=== PATIENT | male | born 1940 | race Caucasian/White ===

== ENCOUNTER 2024-04-17 16:30 | Inpatient (IN) ==
--- NOTE | 2024-04-17 16:37 | EKG ---
Test Reason : high heart rate Blood Pressure : */* mmHG Vent. Rate : 140 BPM Atrial Rate : * BPM P-R Int : * ms QRS Dur : 102 ms QT Int : 242 ms P-R-T Axes : * -5 86 degrees QTc Int : 369 ms Atrial fibrillation with rapid ventricular response Incomplete right bundle branch block ST depression, consider subendocardial injury Abnormal ECG When compared with ECG of 04-NOV-2023 10:22, Atrial fibrillation has replaced Sinus rhythm Vent. rate has increased BY [address] now depressed in Anterior leads Confirmed by Nitin Eisenberg MD ([id number]) on 04/18/2024 7:40:05 AM Referred By: Confirmed By: Nitin Eisenberg MD
[2024-04-17 16:45] LABS: ABG BASE EXCESS 1.8 mmol/L (-2.0-2.0); ABG HCO3 25.7 mmol/L (22-26)
[2024-04-17 16:46] LABS: ABG ALLEN TEST POS
[2024-04-17 16:56] VITALS: BMI 24.7
[2024-04-17] MEDS: NS 1,000 ML IV 1,000 ML IV SCH (17:01)
[2024-04-17] MEDS: CARDIZEM INJ 50 MG VIAL IVP ONE (17:01)
[2024-04-17] MEDS: CARDIZEM INJ 125 MG VIAL 125 MG in NS 100 ML IV 100 ML IV PRN (17:30)
--- NOTE | 2024-04-17 17:31 | DR.GENAD ---
HPI Time Seen Time Seen by Provider: 04/17/24 16:30 PCP Primary Care Physician: Dedrick Complaint/Symptoms Chief Complaint Doctors Comments: Patient had spent vacation time with granddaughter in [facility]. 10-14 days ago he returned home and this am he began to have chills. He informed his this afternoon that he did not feel good and was feeling sob. Patient was brought by to the ED. Patient denies: fever,nausea,vomiting,cough,chest pain. Chief Complaint:: pt to cardiac room with c/o "not feeling well", chills, and el evated HR, pt reports he went to this am then started felling bad afterwards, pt noted to be SOB with walking COVID-19 Coronavirus risk:travel/contact w/high risk person: No Has patient experienced Coronavirus symptoms: No Source History Provided: Patient and Significant Other Mode of Arrival Mode of Arrival: Ambulatory Timing Onset of Chief Complaint: 04/17/24 PMH PMH Past Medical History: Yes Past Medical History: Asthma, COPD, Coronary Artery Disease and Hypertension Past Medical History Comment: A-fib, Throat CA Past Surgical History: Yes Surgical History: CABG/Valve Surgery and Carotid Endarterectomy Family History History of Family Medical Conditions: Yes Family Medical History: Cancer Social History Does patient currently use any type of tobacco product: No Type of Tobacco Use: None Alcohol Use: Rarely Do you use any recreational Drugs:: No Lives With: Spouse Lives Where: Home Travel Risk Coronavirus risk:travel/contact w/high risk person: No Has patient experienced Coronavirus symptoms: No Infectious screening Have you traveled outside the country in the last 6 months?: No Isolation: Standard ROS Review of Systems Constitutional: Chills and Weakness Eyes: No Symptoms Reported ENTM: No Symptoms Reported Respiratoy: Short of Breath; negative Wheezing or Hemoptysis Cardiovascular: No Symptoms Reported Gastrointestinal/Abdominal: No Symptoms Reported Genitourinary: No Symptoms Reported Neurological: No Symptoms Reported Musculoskeletal: No Symptoms Reported Integumentary: No Symptoms Reported Hematologic/Lymphatic: No Symptoms Reported Endocrine: No Symptoms Reported Psychiatric: No Symptoms Reported All Other Systems: Reviewed and Negative PE Vital Signs Vitals: Vital Signs Temperature 98.7 F Pulse Rate 101 Pulse Rate 85 Pulse Rate 100 Pulse Rate 100 Pulse Rate 93 Pulse Rate 92 Pulse Rate 97 Pulse Rate 97 Pulse Rate 100 Pulse Rate 116 Pulse Rate 109 Pulse Rate 113 Pulse Rate 106 Pulse Rate 113 Pulse Rate 104 Pulse Rate 107 Pulse Rate 106 Pulse Rate 106 Pulse Rate 111 Pulse Rate 112 Pulse Rate 117 Pulse Rate 136 Pulse Rate 122 Pulse Rate 135 Pulse Rate 150 Pulse Rate 126 Pulse Rate 208 Pulse Rate 166 Pulse Rate 150 Pulse Rate 141 Respiratory Rate 27 Respiratory Rate 18 Respiratory Rate 25 Respiratory Rate 27 Respiratory Rate 19 Respiratory Rate 19 Respiratory Rate 25 Respiratory Rate 23 Respiratory Rate 21 Respiratory Rate 34 Respiratory Rate 31 Respiratory Rate 30 Respiratory Rate 24 Respiratory Rate 21 Respiratory Rate 17 Respiratory Rate 18 Respiratory Rate 28 Respiratory Rate 19 Respiratory Rate 20 Respiratory Rate 21 Respiratory Rate 25 Respiratory Rate 22 Respiratory Rate 25 Respiratory Rate 23 Respiratory Rate 25 Respiratory Rate 18 Respiratory Rate 24 Respiratory Rate 20 Respiratory Rate 22 Respiratory Rate 24 Blood Pressure 100/54 Blood Pressure 125/58 Blood Pressure 105/52 Blood Pressure 116/56 Blood Pressure 122/56 Blood Pressure 121/57 Blood Pressure 124/60 Blood Pressure 124/60 Blood Pressure 133/60 Blood Pressure 127/60 Blood Pressure 127/60 Blood Pressure 142/65 Blood Pressure 172/70 Blood Pressure 160/69 Blood Pressure 193/83 O2 Sat by Pulse Oximetry 95 O2 Sat by Pulse Oximetry 94 O2 Sat by Pulse Oximetry 94 O2 Sat by Pulse Oximetry 94 O2 Sat by Pulse Oximetry 95 O2 Sat by Pulse Oximetry 96 O2 Sat by Pulse Oximetry 95 O2 Sat by Pulse Oximetry 95 O2 Sat by Pulse Oximetry 94 O2 Sat by Pulse Oximetry 94 O2 Sat by Pulse Oximetry 97 O2 Sat by Pulse Oximetry 96 O2 Sat by Pulse Oximetry 96 O2 Sat by Pulse Oximetry 97 O2 Sat by Pulse Oximetry 97 O2 Sat by Pulse Oximetry 97 O2 Sat by Pulse Oximetry 97 O2 Sat by Pulse Oximetry 96 O2 Sat by Pulse Oximetry 96 O2 Sat by Pulse Oximetry 96 O2 Sat by Pulse Oximetry 94 O2 Sat by Pulse Oximetry 95 O2 Sat by Pulse Oximetry 95 O2 Sat by Pulse Oximetry 93 O2 Sat by Pulse Oximetry 87 O2 Sat by Pulse Oximetry 82 O2 Sat by Pulse Oximetry 91 General Limitations: No Limitations General Appearance: Alert and In No Apparent Distress Head Head Exam: Normal Inspection Eyes Eye exam: Normal Appearance ENT ENT Exam: Normal Exam External Ear Exam: Normal External Inspection TM/Canal Exam: Bilateral: Normal Nose Exam: Normal Nose Exam Mouth Exam: Normal Inspection Throat Exam: Normal Inspection Neck Neck Exam: Normal Inspection Chest Chest Inspection: Normal Inspection Respiratory Respiratory Exam: Normal Lung Sounds Bilat Respiratory Exam: Bilateral: Crackles and Lower: Crackles Cardiovascular Cardiovascular Exam: Tachycardia and Irregular Rhythm Abdominal Exam Abdominal Exam: Normal Inspection, Normal Bowel Sounds, Soft, Tenderness and Hypoactive Bowel Sounds Abdominal Tenderness: Epigastrium Extremities Extremities Exam: Normal Inspection Back Back Exam: Normal Inspection Neurologic Neurological Exam: Alert and Oriented X3 Psychiatric Psychiatric Exam: Normal Affect and Normal Mood Skin Skin Exam: Warm, Dry, Intact and Normal Color MDM Differential Diagnosis Differential Diagnosis: DDx: AMI,CHF,Pneumonia,PE,pericarditis,electrolyte disorder COURSE Treatment Treatment: Patient was brought to a monitored room and iv access was initiated.Labs and tests were ordered. Patient had a rhythm that was iregular and a rate of 140's.He was gioven Ns 1 liter bolus and the rate continued in the 120's. Patient was given cardizem 5 mg iv and Patient's Hr decreased to 107. Patient has Atrial Fib with RVR and was placed on a cardizem drip at 5mg/hr iv. Patient 's abg revealed a P02 47/02sat 85% on Rm air.Patient was placed on 3L nc 02 and his sat increased to 96-97%. Patient uses 02 at night 4Lnc. Patient has a wbc 21.8 and received zosyn 3.376mg iv. The cardiac enz are wnl,ekgs did not reveal ischemia,cmp is stable. Discussed case with Dr Gonzales who accepted Patient to his service at [facility]. Patient states that his vp revenue cycle is Dr Rodriguez. ROR Labs Reviewed Laboratory Results Reviewed?: Yes 04/17/24 16:45 04/17/24 16:45 Laboratory: WBC 21.8 X10^3/uL (3.6-10.0) H 04/17/24 16:45 RBC 4.77 X10^6/uL (4.7-6.0) 04/17/24 16:45 Hgb 13.1 g/dL (13.5-18.0) L 04/17/24 16:45 Hct 40.8 % (42.0-54.0) L 04/17/24 16:45 MCV 85.5 fL (80.0-100.0) 04/17/24 16:45 MCH 27.5 pg (27.0-34.0) 04/17/24 16:45 MCHC 32.2 g/dL (33.0-35.0) L 04/17/24 16:45 RDW 13.9 % (11.6-16.5) 04/17/24 16:45 Plt Count 241 X10^3/uL (150.0-450.0) 04/17/24 16:45 Plt Count Comment Adequate (ADEQUATE) 04/17/24 16:45 MPV 9.4 fL (7.4-11.0) 04/17/24 16:45 Neut % (Auto) 90.2 % (42.0-75.0) H 04/17/24 16:45 Lymph % (Auto) 7.7 % (21.0-51.0) L 04/17/24 16:45 [place] % (Auto) 1.7 % (0.0-13.0) 04/17/24 16:45 Eos % (Auto) 0.2 % (0.9-2.9) L 04/17/24 16:45 Baso % (Auto) 0.2 % (0.2-1.0) 04/17/24 16:45 Neut # (Auto) 19.6 x10^3/uL (2.2-4.8) H 04/17/24 16:45 Lymph # (Auto) 1.7 X10^3/uL (1.3-2.9) 04/17/24 16:45 [place] # (Auto) 0.4 x10^3/uL (0.3-0.8) 04/17/24 16:45 Eos # (Auto) 0.0 x10^3/uL (0.0-0.2) 04/17/24 16:45 Baso # (Auto) 0.1 X10^3/uL (0.0-0.1) 04/17/24 16:45 Absolute Nucleated RBC 0.0 /100WBC 04/17/24 16:45 Total Counted 100 04/17/24 16:45 Neutrophils % (Manual) 89 % (39-76) H 04/17/24 16:45 Lymphocytes % (Manual) 9 % (13-43) L 04/17/24 16:45 Monocytes % (Manual) 2 % (4-9) L 04/17/24 16:45 Eosinophils % (Manual) 0 % (0-6) 04/17/24 16:45 Basophils % (Manual) 0 % (0-1) 04/17/24 16:45 Giant Platelets Rare 04/17/24 16:45 Plt Morphology Comment Abnormal (NORMAL) 04/17/24 16:45 RBC Morphology Abnormal (NORMAL) 04/17/24 16:45 Stomatocytes Slight A 04/17/24 16:45 PT 15.1 SECONDS (11.8-14.3) 04/17/24 16:45 INR Target Range - 04/17/24 16:45 INR 1.22 (0.8-1.3) 04/17/24 16:45 APTT 31.6 SECONDS (22.9-36.5) 04/17/24 16:45 PTT Comment - 04/17/24 16:45 D-Dimer 0.47 ug/ml (0.0-0.57) 04/17/24 16:45 Sample Site Rrad 04/17/24 16:39 ABG pH 7.450 (7.35-7.45) 04/17/24 16:39 ABG pCO2 37.0 mmHg (35.0-45.0) 04/17/24 16:39 ABG pO2 47.0 mmHg (80.0-100.0) L* 04/17/24 16:39 ABG HCO3 25.7 mmol/L (22-26) 04/17/24 16:39 ABG O2 Saturation 85.0 % (90-100) L 04/17/24 16:39 ABG Base Excess 1.8 mmol/L (-2.0-2.0) 04/17/24 16:39 Jonh Test Pos 04/17/24 16:39 A-a Gradient 56.0 mmHg 04/17/24 16:39 FiO2 21.0 04/17/24 16:39 Blood Gas Comments Pt ezequiel well elj cdn 04/17/24 16:39 Sodium 138 mmol/L (136-145) 04/17/24 16:45 Corrected Sodium 140 mmol/L (136-145) 04/17/24 16:45 Potassium 4.1 mmol/L (3.5-5.1) 04/17/24 16:45 Chloride 103 mmol/L (98-107) 04/17/24 16:45 Carbon Dioxide 28.4 mmol/L (21-32) 04/17/24 16:45 BUN 30 mg/dL (7-18) H 04/17/24 16:45 Creatinine 1.94 mg/dL (0.70-1.30) H 04/17/24 16:45 Est GFR (MDRD) Af Amer 43 (>60) L 04/17/24 16:45 Est GFR (MDRD) Non-Af 35 (>60) L 04/17/24 16:45 Glucose 171 mg/dL (65-99) H 04/17/24 16:45 Lactic Acid 1.2 mmol/L (0.4-2.0) 04/17/24 19:15 Calcium 9.0 mg/dL (8.5-10.1) 04/17/24 16:45 Corrected Calcium TNP 04/17/24 16:45 Total Bilirubin 0.50 mg/dL (0.2-1.0) 04/17/24 16:45 AST 20 Units/L (15-37) 04/17/24 16:45 ALT 25 Units/L (12-78) 04/17/24 16:45 Alkaline Phosphatase 38 Units/L (46-116) L 04/17/24 16:45 Creatine Kinase 53 Units/L (39-308) 04/17/24 16:45 Troponin I High Sens 10.8 ng/L (4.0-60.0) 04/17/24 18:48 B-Natriuretic Peptide 282 pg/mL (0-79) H 04/17/24 16:45 Total Protein 7.4 g/dL (6.4-8.2) 04/17/24 16:45 Albumin 3.4 g/dL (3.4-5.0) 04/17/24 16:45 Globulin 4.0 g/dL (2.5-4.5) 04/17/24 16:45 Albumin/Globulin Ratio 0.9 Ratio (1.1-2.1) L 04/17/24 16:45 Specimen Type Clean catch urine 04/17/24 18:02 Urine Color Yellow (YELLOW) 04/17/24 18:02 Urine Appearance Clear (CLEAR) 04/17/24 18:02 Urine pH 6.0 (5.0 - 8.0) 04/17/24 18:02 Ur Specific [place] 1.020 (1.000-1.030) 04/17/24 18:02 Urine Protein 1+ (NEGATIVE) 04/17/24 18:02 Urine Glucose (UA) Negative (NEGATIVE) 04/17/24 18:02 Urine Ketones Negative (NEGATIVE) 04/17/24 18:02 Urine Blood Negative (NEGATIVE) 04/17/24 18:02 Urine Nitrite Negative (NEGATIVE) 04/17/24 18:02 Urine Bilirubin Negative (NEGATIVE) 04/17/24 18:02 Urine Urobilinogen Normal (NORMAL) 04/17/24 18:02 Ur Leukocyte Esterase Negative (NEGATIVE) 04/17/24 18:02 Urine RBC None seen /HPF (0-3) 04/17/24 18:02 Urine WBC 0-2 /HPF (0-5) 04/17/24 18:02 Ur Squamous Epith Cells Rare /HPF (NEGATIVE) 04/17/24 18:02 Urine Bacteria Trace /HPF (NEGATIVE) 04/17/24 18:02 Hyaline Casts Few /LPF (NEGATIVE) 04/17/24 18:02 Urine Mucus Few /HPF (NEGATIVE) 04/17/24 18:02 Ur Culture Indicated? No/not indicated 04/17/24 18:02 EKG Compared to prior EKG Dated: 04/17/24 Rate: 140 [place]: Normal Rhythm: Afib Opioid Opioid Risk Tool Age (Jose Carlos box if 16-45): No History of Preadolescent Sexual Abuse: No Total: 0 Total Score Risk Category: Low Risk Copyright: Robson PENA predicting aberrant behaviors Discharge Plan Diagnosis Discharge Problem: Pneumonia, Hypoxemia, Atrial fibrillation with rapid ventricular response Discharge Plan Patient Disposition: 09 ADMITTED INPATIENT Condition: Stable Prescriptions: No Action metoprolol succinate 50 mg tablet extended release 24 hr 50 mg PO QNOON valsartan 80 mg tablet 80 mg PO BID clopidogrel 75 mg tablet 75 mg PO QAM amlodipine 5 mg tablet 5 mg PO QPM doxazosin 8 mg Tablet 8 mg PO QPM famotidine 20 mg Tablet 20 mg PO QAM sodium bicarbonate 650 mg tablet 650 mg PO BID cyanocobalamin (vitamin B-12) 1,000 mcg/mL Solution 1,000 mcg subcut MONTHLY Rx Instructions: 3 times weekly ergocalciferol (vitamin D2) [Vitamin D2] 1,250 mcg (50,000 unit) capsule 1,250 mcg PO QWEEK Rx Instructions: take on Thursday finasteride 5 mg tablet 5 mg PO QPM rosuvastatin 20 mg tablet 20 mg PO QPM ferrous gluconate 225 mg (27 mg iron) Tablet 225 mg PO QPM Eliquis 2.5 mg tablet 2.5 mg PO BID Trelegy Ellipta 100-62.5-25 mcg blister with device 1 ea INHALATION QAM loratadine 10 mg Capsule 10 mg PO QAM magnesium oxide 400 mg magnesium Tablet 400 mg PO 2XW Rx Instructions: TAKES ON THURSDAY AND THURSDAY NIGHT Health Concerns: Post Hospitalization: new medications and changes needed to prevent readmission or further decline. Pt educated and given instructions on all concerns. Plan of Treatment: Continue with present treatment and follow up plan. Pt is to keep follow up appointment as instructed and take medications as ordered. Orders to Discharge Patient Discharge Orders: Transfer (Routine); Ordered 04/17/24 Ordered By: Magaly Lei Follow ups/Referrals Follow ups/Referrals: RENAN DICKEY V [Primary Care Provider] - 3 days Instructions Stand Alone Forms: Post Hospital Follow Up Care ADDITIONAL NOTES Additional Notes Additional Notes: Rhythm Afib RVR Rate 117
[2024-04-17 17:46] LABS: BASOPHILS # (AUTO) 0.1 X10^3/uL (0.0-0.1); EOSINOPHILS % (AUTO) 0.2 % (0.9-2.9); MEAN CORPUSCULAR HEMOGLOBIN 27.5 pg (27.0-34.0); RED CELL DISTRIBUTION WIDTH 13.9 % (11.6-16.5)
[2024-04-17 17:50] LABS: BASOPHILS % (AUTO) 0.2 % (0.2-1.0); HEMATOCRIT 40.8 % (42.0-54.0); HEMOGLOBIN 13.1 g/dL (13.5-18.0); INR 1.22 (0.8-1.3); LYMPHOCYTES # (AUTO) 1.7 X10^3/uL (1.3-2.9); LYMPHOCYTES % (AUTO) 7.7 % (21.0-51.0); MEAN CORPUSCULAR HGB CONC 32.2 g/dL (33.0-35.0); MEAN CORPUSCULAR VOLUME 85.5 fL (80.0-100.0); MEAN PLATELET VOLUME 9.4 fL (7.4-11.0); MONOCYTES # (AUTO) 0.4 x10^3/uL (0.3-0.8); MONOCYTES % (AUTO) 1.7 % (0.0-13.0); NEUTROPHILS # (AUTO) 19.6 x10^3/uL (2.2-4.8); NEUTROPHILS % (AUTO) 90.2 % (42.0-75.0); PLATELET COUNT 241 X10^3/uL (150.0-450.0); RED BLOOD COUNT 4.77 X10^6/uL (4.7-6.0); WHITE BLOOD COUNT 21.8 X10^3/uL (3.6-10.0)
[2024-04-17 17:56] LABS: ALANINE AMINOTRANSFERASE 25 Units/L (12-78); ALBUMIN 3.4 g/dL (3.4-5.0); ALKALINE PHOSPHATASE 38 Units/L (46-116); ASPARTATE AMINO TRANSFERASE 20 Units/L (15-37); BLOOD UREA NITROGEN 30 mg/dL (7-18); CARBON DIOXIDE 28.4 mmol/L (21-32); CHLORIDE 103 mmol/L (98-107); COR NA(FOR HYPERGLY) 140 mmol/L (136-145); CREATINE KINASE 53 Units/L (39-308); CREATININE 1.94 mg/dL (0.70-1.30); GLUCOSE 171 mg/dL (65-99); POTASSIUM 4.1 mmol/L (3.5-5.1); SODIUM 138 mmol/L (136-145); TOTAL PROTEIN 7.4 g/dL (6.4-8.2); eGFR NON BLACK RACES 35 (>60)
--- NOTE | 2024-04-17 18:02 | EKG ---
Test Reason : repeat Blood Pressure : */* mmHG Vent. Rate : 117 BPM Atrial Rate : * BPM P-R Int : * ms QRS Dur : 104 ms QT Int : 294 ms P-R-T Axes : * 38 84 degrees QTc Int : 410 ms Atrial fibrillation with rapid ventricular response Incomplete right bundle branch block Nonspecific ST abnormality Abnormal ECG When compared with ECG of 17-APR-2024 16:34, (Unconfirmed) No significant change was found Confirmed by Nitin Eisenberg MD ([id number]) on 04/18/2024 7:38:32 AM Referred By: Confirmed By: Nitin Eisenberg MD
[2024-04-17 18:07] LABS: BILIRUBIN,URINE NEGATIVE (NEGATIVE); BLOOD/HEMOGLOBIN,URINE NEGATIVE (NEGATIVE); GLUCOSE, URINE NEGATIVE (NEGATIVE); KETONES,URINE NEGATIVE (NEGATIVE); LEUKOCYTE ESTERASE ,URINE NEGATIVE (NEGATIVE); NITRITES,URINE NEGATIVE (NEGATIVE); PROTEIN,URINE 1+ (NEGATIVE); UROBILINOGEN,URINE NORMAL (NORMAL)
[2024-04-17 18:13] LABS: APPEARANCE,URINE CLEAR (CLEAR); BACTERIA,URINE TRACE /HPF (NEGATIVE); COLOR,URINE YELLOW (YELLOW); HYALINE CASTS, URINE FEW /LPF (NEGATIVE); RBC,URINE NONE SEEN /HPF (0-3); SQUAMOUS EPITHELIAL CELL,UR RARE /HPF (NEGATIVE)
[2024-04-17 18:19] LABS: BASOPHILS % (MANUAL) 0 % (0-1); GIANT PLATELET RARE; PLATELET MORPHOLOGY COMMENT ABNORMAL (NORMAL)
[2024-04-17 18:20] LABS: STOMATOCYTES SLIGHT
[2024-04-17] MEDS: ZOSYN VIAL 3.375 GRAMS 3.375 G in NS 100 ML IV 100 ML IV ONE (19:36)
[2024-04-18] MEDS: NS 1,000 ML IV 1,000 ML ONE (01:18)
[2024-04-18] MEDS: CARDIZEM INJ 50 MG VIAL ONE (01:19)
[2024-04-18] MEDS: ZOFRAN INJ 4 MG VIAL ONE (01:19)
[2024-04-18] MEDS: CARDIZEM INJ 125 MG VIAL ONE (01:19)
[2024-04-18] MEDS: NS 100 ML IV 100 ML ONE (01:19)
[2024-04-18] MEDS: XOPENEX 1.25 MG/3 ML NEBULE NEB SCH (05:21)
[2024-04-18 05:26] LABS: BASOPHILS % (AUTO) 0.1 % (0.2-1.0); EOSINOPHILS % (AUTO) 0.1 % (0.9-2.9); HEMATOCRIT 34.5 % (42.0-54.0); LYMPHOCYTES % (AUTO) 2.3 % (21.0-51.0); MEAN CORPUSCULAR HEMOGLOBIN 27.2 pg (27.0-34.0); MEAN CORPUSCULAR HGB CONC 31.8 g/dL (33.0-35.0); MEAN CORPUSCULAR VOLUME 85.6 fL (80.0-100.0); MEAN PLATELET VOLUME 10.2 fL (7.4-11.0); MONOCYTES # (AUTO) 1.1 x10^3/uL (0.3-0.8); MONOCYTES % (AUTO) 2.5 % (0.0-13.0); NEUTROPHILS # (AUTO) 43.8 x10^3/uL (2.2-4.8); PLATELET COUNT 185 X10^3/uL (150.0-450.0); RED BLOOD COUNT 4.03 X10^6/uL (4.7-6.0); RED CELL DISTRIBUTION WIDTH 14.3 % (11.6-16.5)
[2024-04-18 05:37] LABS: ALBUMIN 2.5 g/dL (3.4-5.0); CALCIUM 8.2 mg/dL (8.5-10.1); CARBON DIOXIDE 28.5 mmol/L (21-32); COR CA(FOR HYPOALB) 9.4 mg/dL (8.5-10.1); CREATININE 2.5 mg/dL (0.70-1.30); POTASSIUM 4.3 mmol/L (3.5-5.1); TOTAL PROTEIN 5.8 g/dL (6.4-8.2)
[2024-04-18 05:45] LABS: BAND NEUTROPHILS % 7 % (0-10); PLATELET MORPHOLOGY COMMENT NORMAL (NORMAL)
[2024-04-18] MEDS ORDERED: CONSULT PHARMACY - POTASSIUM & MAGNESIUM XX SCH (08:00)
--- NOTE | 2024-04-18 08:06 | RAD ---
EXAM:CHEST, 1 VIEWHISTORY:palpitations, sob; high pulse, extremely coldCOMPARISON:Prior study or studies were utilized for comparison during interpretation with the most relevant dated 02/24/2024TECHNIQUE:CHEST, 1 VIEWFINDINGS:Chest:Lines and tubes: Cardiac leads overlie the chest.Mediastinum: Median sternotomy wires are present. Cardiac shadow is normal in size.Pulmonary vessels: No pulmonary vascular congestion.Lung llamas: No suspicious airspace opacity.Pleura: No effusion. No pneumothorax.Bones and soft tissues: No acute osseous or soft tissue abnormality.IMPRESSION:1. No acute cardiopulmonary abnormalityTHIS IS AN ELECTRONICALLY VERIFIED FINAL REPORT04/18/2024 8:03 AM - Electronically signed by Rupert Mccoy MD
[2024-04-18] MEDS: MAG-OX TAB PO SCH (08:11)
[2024-04-18] MEDS: SODIUM BICARBONATE TAB 650MG PO SCH (08:11)
[2024-04-18] MEDS: CLARITIN PO SCH (08:11)
[2024-04-18] MEDS: ELIQUIS PO SCH (08:11)
[2024-04-18] MEDS: PLAVIX PO SCH (08:11)
[2024-04-18] MEDS: PEPCID TAB 20 MG PO SCH (08:11)
[2024-04-18] MEDS: DIOVAN TAB 80 MG PO SCH (08:11)
[2024-04-18] MEDS: TOPROL XL PO SCH (08:11)
[2024-04-18] MEDS: VANCOMYCIN IV *PREMIX 1 G/200 ML BAG 1 G/200 ML PIGGYBACK IV SCH (08:12)
[2024-04-18] MEDS: NS 250 ML IV 25 ML IV PRN (09:20)
[2024-04-18] MEDS: ZOSYN VIAL 3.375 GRAMS 3.375 G in NS 100 ML IV 100 ML IV SCH (09:20)
[2024-04-18] MEDS: PULMICORT NEB TX 0.5 MG NEB SCH (09:24)
--- NOTE | 2024-04-18 10:47 | DR.H&P ---
H&P History & Physical for Day of: H&P Date: 04/18/24 Chief Complaint Chief Complaint: SOB, weakness History of Present Illness History of Present Illness: Mr Dhaliwal is a 83y/o male with a PMH of CAD s/p CABG, atrial fibrillation, HTN, HLD and CKD presented with worsening SOB and weakness. Patient was being treated outpatient for pneumonia for the past week. He completed a course of antibiotics and was started on medrol dose pack. He noticed increased SOB with exertion and weakness. His HR was noted to be in the 140s so he came to the ER. In the ER, he was noted to be in A fib RVR, started on Cardizem drip. Trop and d-dimer were negative. His WBC was elevated at 21.8, he was started on empiric antibiotics. CXR did not show acute changes. He is currently on 4L NC. He does use O2 at home but mostly at night. He does not appear to be in any distress. His morning labs today, did show WBC at 46, Vancomycin was added, lactic acid was normal. Labs/imaging reviewed -WBC 46 Hgb 11 Plt 185 BUN/Cr: 34/2.50 D-dimer:0.47 Lactic acid: 1.2 Ma.5 BNP elevated Plan: Continue ICU care with telemetry. Wean cardizem drip as per protocol, currently on 2.5 mg/hr, HR in the 70s. Wean O2 as tolerated. Echo ordered. CXR pending. Continue IV antibiotics and nebs. Follow pending cultures. Will stop IVF. Resume home medications. Replace electrolytes as per protocol. Monitor AM labs/imaging. Time spent for clinical assessment, reviewing labs/imaging, decision making, documentation greater than 45 mins. Past Medical History Past Medical History: Asthma, COPD, Coronary Artery Disease and Hypertension Past Surgical History Surgical History: CABG/Valve Surgery and Carotid Endarterectomy Family History Family Medical History: Cancer Social History Does patient currently use any type of tobacco product: No Have you used tobacco products in the last 12 months: No Type of Tobacco Use: None Alcohol Use: Rarely Medications Home Medications: Home Medications Medication Instructions Recorded Confirmed Type loratadine 10 mg capsule 10 mg PO QAM 04/28/20 04/17/24 History amlodipine 5 mg tablet 5 mg PO QPM 11/04/23 04/17/24 History apixaban 2.5 mg tablet (Eliquis) 2.5 mg PO BID 11/04/23 04/17/24 History clopidogrel 75 mg tablet 75 mg PO QAM 11/04/23 04/17/24 History cyanocobalamin (vitamin B-12) 1,000 mcg subcut MONTHLY 11/04/23 04/17/24 History 1,000 mcg/mL injection solution doxazosin 8 mg tablet 8 mg PO QPM 11/04/23 04/17/24 History ergocalciferol (vitamin D2) 1,250 1,250 mcg PO QWEEK 11/04/23 04/17/24 History mcg (50,000 unit) capsule (Vitamin D2) famotidine 20 mg tablet 20 mg PO QAM 11/04/23 04/17/24 History ferrous gluconate 225 mg (27 mg 225 mg PO QPM 11/04/23 04/17/24 History iron) tablet finasteride 5 mg tablet 5 mg PO QPM 11/04/23 04/17/24 History fluticasone fur. 100 mcg-umeclid 1 ea inhalation QAM 11/04/23 04/17/24 History 62.5 mcg-vilant 25 mcg inhalat.powder (Trelegy Ellipta) metoprolol succinate 50 mg 50 mg PO QNOON 11/04/23 04/17/24 History tablet,extended release 24 hr rosuvastatin 20 mg tablet 20 mg PO QPM 11/04/23 04/17/24 History sodium bicarbonate 650 mg tablet 650 mg PO BID 11/04/23 04/17/24 History valsartan 80 mg tablet 80 mg PO BID 11/04/23 04/17/24 History magnesium oxide 400 mg PO 2XW 04/17/24 04/17/24 History Allergies Allergies Allergy/AdvReac Type Severity Reaction Status Date / Time No Known Drug Allergies Allergy Verified 04/17/24 16:57 Labs 04/18/24 04:15 04/18/24 04:15 Labs: 04/18/24 01:50 Sputum - Expectorated Sputum - Final Laboratory WBC 46.0 X10^3/uL (3.6-10.0) H* D 04/18/24 04:15 RBC 4.03 X10^6/uL (4.7-6.0) L 04/18/24 04:15 Hgb 11.0 g/dL (13.5-18.0) L D 04/18/24 04:15 Hct 34.5 % (42.0-54.0) L 04/18/24 04:15 MCV 85.6 fL (80.0-100.0) 04/18/24 04:15 MCH 27.2 pg (27.0-34.0) 04/18/24 04:15 MCHC 31.8 g/dL (33.0-35.0) L 04/18/24 04:15 RDW 14.3 % (11.6-16.5) 04/18/24 04:15 Plt Count 185 X10^3/uL (150.0-450.0) 04/18/24 04:15 Plt Count Comment Adequate (ADEQUATE) 04/18/24 04:15 MPV 10.2 fL (7.4-11.0) 04/18/24 04:15 Neut % (Auto) 95.0 % (42.0-75.0) H 04/18/24 04:15 Lymph % (Auto) 2.3 % (21.0-51.0) L 04/18/24 04:15 [place] % (Auto) 2.5 % (0.0-13.0) 04/18/24 04:15 Eos % (Auto) 0.1 % (0.9-2.9) L 04/18/24 04:15 Baso % (Auto) 0.1 % (0.2-1.0) L 04/18/24 04:15 Neut # (Auto) 43.8 x10^3/uL (2.2-4.8) H 04/18/24 04:15 Lymph # (Auto) 1.0 X10^3/uL (1.3-2.9) L 04/18/24 04:15 [place] # (Auto) 1.1 x10^3/uL (0.3-0.8) H 04/18/24 04:15 Eos # (Auto) 0.0 x10^3/uL (0.0-0.2) 04/18/24 04:15 Baso # (Auto) 0.0 X10^3/uL (0.0-0.1) 04/18/24 04:15 Absolute Nucleated RBC 0.0 /100WBC 04/18/24 04:15 Total Counted 100 04/18/24 04:15 Neutrophils % (Manual) 86 % (39-76) H 04/18/24 04:15 Band Neutrophils % 7 % (0-10) 04/18/24 04:15 Lymphocytes % (Manual) 4 % (13-43) L 04/18/24 04:15 Monocytes % (Manual) 3 % (4-9) L 04/18/24 04:15 Eosinophils % (Manual) 0 % (0-6) 04/17/24 16:45 Basophils % (Manual) 0 % (0-1) 04/17/24 16:45 Giant Platelets Rare 04/17/24 16:45 Plt Morphology Comment Normal (NORMAL) 04/18/24 04:15 RBC Morphology Normal (NORMAL) 04/18/24 04:15 Stomatocytes Slight A 04/17/24 16:45 PT 15.1 SECONDS (11.8-14.3) 04/17/24 16:45 INR Target Range - 04/17/24 16:45 INR 1.22 (0.8-1.3) 04/17/24 16:45 APTT 31.6 SECONDS (22.9-36.5) 04/17/24 16:45 PTT Comment - 04/17/24 16:45 D-Dimer 0.47 ug/ml (0.0-0.57) 04/17/24 16:45 Sample Site Rrad 04/17/24 16:39 ABG pH 7.450 (7.35-7.45) 04/17/24 16:39 ABG pCO2 37.0 mmHg (35.0-45.0) 04/17/24 16:39 ABG pO2 47.0 mmHg (80.0-100.0) L* 04/17/24 16:39 ABG HCO3 25.7 mmol/L (22-26) 04/17/24 16:39 ABG O2 Saturation 85.0 % (90-100) L 04/17/24 16:39 ABG Base Excess 1.8 mmol/L (-2.0-2.0) 04/17/24 16:39 Jonh Test Pos 04/17/24 16:39 A-a Gradient 56.0 mmHg 04/17/24 16:39 FiO2 21.0 04/17/24 16:39 Blood Gas Comments Pt ezequiel well elj cdn 04/17/24 16:39 Sodium 138 mmol/L (136-145) 04/18/24 04:15 Corrected Sodium 139 mmol/L (136-145) 04/18/24 04:15 Potassium 4.3 mmol/L (3.5-5.1) 04/18/24 04:15 Chloride 105 mmol/L (98-107) 04/18/24 04:15 Carbon Dioxide 28.5 mmol/L (21-32) 04/18/24 04:15 BUN 34 mg/dL (7-18) H 04/18/24 04:15 Creatinine 2.50 mg/dL (0.70-1.30) H 04/18/24 04:15 Est GFR (MDRD) Af Amer 32 (>60) L 04/18/24 04:15 Est GFR (MDRD) Non-Af 26 (>60) L 04/18/24 04:15 Glucose 129 mg/dL (65-99) H 04/18/24 04:15 Lactic Acid 1.2 mmol/L (0.4-2.0) 04/18/24 07:20 Calcium 8.2 mg/dL (8.5-10.1) L 04/18/24 04:15 Corrected Calcium 9.4 mg/dL (8.5-10.1) 04/18/24 04:15 Magnesium 1.5 mg/dL (2.0-2.9) L 04/18/24 04:15 Total Bilirubin 1.20 mg/dL (0.2-1.0) H 04/18/24 04:15 AST 17 Units/L (15-37) 04/18/24 04:15 ALT 18 Units/L (12-78) 04/18/24 04:15 Alkaline Phosphatase 24 Units/L (46-116) L 04/18/24 04:15 Creatine Kinase 53 Units/L (39-308) 04/17/24 16:45 Troponin I High Sens 10.8 ng/L (4.0-60.0) 04/17/24 18:48 B-Natriuretic Peptide 322 pg/mL (0-79) H 04/18/24 04:15 Total Protein 5.8 g/dL (6.4-8.2) L 04/18/24 04:15 Albumin 2.5 g/dL (3.4-5.0) L 04/18/24 04:15 Globulin 3.3 g/dL (2.5-4.5) 04/18/24 04:15 Albumin/Globulin Ratio 0.8 Ratio (1.1-2.1) L 04/18/24 04:15 Specimen Type Clean catch urine 04/17/24 18:02 Urine Color Yellow (YELLOW) 04/17/24 18:02 Urine Appearance Clear (CLEAR) 04/17/24 18:02 Urine pH 6.0 (5.0 - 8.0) 04/17/24 18:02 Ur Specific [place] 1.020 (1.000-1.030) 04/17/24 18:02 Urine Protein 1+ (NEGATIVE) 04/17/24 18:02 Urine Glucose (UA) Negative (NEGATIVE) 04/17/24 18:02 Urine Ketones Negative (NEGATIVE) 04/17/24 18:02 Urine Blood Negative (NEGATIVE) 04/17/24 18:02 Urine Nitrite Negative (NEGATIVE) 04/17/24 18:02 Urine Bilirubin Negative (NEGATIVE) 04/17/24 18:02 Urine Urobilinogen Normal (NORMAL) 04/17/24 18:02 Ur Leukocyte Esterase Negative (NEGATIVE) 04/17/24 18:02 Urine RBC None seen /HPF (0-3) 04/17/24 18:02 Urine WBC 0-2 /HPF (0-5) 04/17/24 18:02 Ur Squamous Epith Cells Rare /HPF (NEGATIVE) 04/17/24 18:02 Urine Bacteria Trace /HPF (NEGATIVE) 04/17/24 18:02 Hyaline Casts Few /LPF (NEGATIVE) 04/17/24 18:02 Urine Mucus Few /HPF (NEGATIVE) 04/17/24 18:02 Ur Culture Indicated? No/not indicated 04/17/24 18:02 Review of Systems Constitutional: Weakness Eyes: No Symptoms Reported Respiratory: Cough and Shortness of Breath Cardiovascular: Paroxysmal Noc. Dyspnea Gastrointestinal: No Symptoms Reported Genitourinary: No Symptoms Reported Musculoskeletal: No Symptoms Reported Skin: No Symptoms Reported Neurological: No Symptoms Reported Physical Exam Vital Signs: Vital Signs Temperature 98.7 F Temperature 98.0 F Temperature 98.0 F Pulse Rate 76 Pulse Rate 80 Pulse Rate 80 Pulse Rate 73 Pulse Rate 78 Pulse Rate 73 Pulse Rate 72 Pulse Rate 72 Pulse Rate 84 Pulse Rate 81 Pulse Rate 81 Respiratory Rate 24 Respiratory Rate 23 Respiratory Rate 23 Respiratory Rate 23 Respiratory Rate 23 Respiratory Rate 21 Respiratory Rate 25 Respiratory Rate 25 Respiratory Rate 26 Blood Pressure 103/51 Blood Pressure 104/54 Blood Pressure 97/50 Blood Pressure 98/51 Blood Pressure 94/54 Blood Pressure 91/54 Blood Pressure 93/52 Blood Pressure 93/52 Blood Pressure 96/51 O2 Sat by Pulse Oximetry 98 O2 Sat by Pulse Oximetry 97 O2 Sat by Pulse Oximetry 97 O2 Sat by Pulse Oximetry 96 O2 Sat by Pulse Oximetry 98 O2 Sat by Pulse Oximetry 98 O2 Sat by Pulse Oximetry 98 O2 Sat by Pulse Oximetry 97 O2 Sat by Pulse Oximetry 97 O2 Sat by Pulse Oximetry 96 O2 Sat by Pulse Oximetry 99 Oriented: Normal Eyes: Normal Nose: Normal Throat: Normal Respiratory: Diminished Throughout and Rales Throughout Cardiovascular: Normal and Irregular Auscultation: Bowel Sounds: Normal Palpation: Normal Tenderness: Normal Skin: Normal Musculoskeletal: Normal Psychiatric: Normal Mood Description: Calm Affect: Normal Speech Pattern: Clear and Appropriate Assessment/Plan (1) Atrial fibrillation with rapid ventricular response: Status: Acute (2) Acute and chronic respiratory failure: Qualifiers: Respiratory failure complication: hypoxia Qualified Code(s): J96.21 - Acute and chronic respiratory failure with hypoxia Status: Acute (3) Leukocytosis: Qualifiers: Leukocytosis type: unspecified Qualified Code(s): D72.829 - Elevated white blood cell count, unspecified Status: Acute (4) Pneumonia: Qualifiers: Laterality: unspecified laterality Lung location: unspecified part of lung Pneumonia type: due to unspecified organism Qualified Code(s): J18.9 - Pneumonia, unspecified organism Status: Acute (5) Hypomagnesemia: Status: Acute (6) CAD (coronary artery disease): Qualifiers: Associated angina: unspecified whether angina present Coronary Disease- Associated Artery/Lesion type: bypass graft [place] vs. transplanted heart: [place] heart Qualified Code(s): I25.810 - Atherosclerosis of coronary artery bypass graft(s) without angina pectoris Status: Acute (7) Essential hypertension: Status: Acute (8) Anemia: Qualifiers: Anemia type: unspecified type Qualified Code(s): D64.9 - Anemia, unspecified Status: Acute (9) Acute kidney injury superimposed on CKD: Status: Acute
[2024-04-18 10:48] LABS: BASOPHILS # (AUTO) 0.1 X10^3/uL (0.0-0.1); BASOPHILS % (AUTO) 0.3 % (0.2-1.0); HEMATOCRIT 32.4 % (42.0-54.0); HEMOGLOBIN 10.4 g/dL (13.5-18.0); LYMPHOCYTES # (AUTO) 1.8 X10^3/uL (1.3-2.9); LYMPHOCYTES % (AUTO) 4.6 % (21.0-51.0); MEAN CORPUSCULAR HEMOGLOBIN 27.4 pg (27.0-34.0); MEAN CORPUSCULAR HGB CONC 32.1 g/dL (33.0-35.0); MEAN CORPUSCULAR VOLUME 85.2 fL (80.0-100.0); MEAN PLATELET VOLUME 9.5 fL (7.4-11.0); MONOCYTES # (AUTO) 0.7 x10^3/uL (0.3-0.8); MONOCYTES % (AUTO) 1.9 % (0.0-13.0); NEUTROPHILS # (AUTO) 36.1 x10^3/uL (2.2-4.8); NEUTROPHILS % (AUTO) 93.2 % (42.0-75.0); PLATELET COUNT 161 X10^3/uL (150.0-450.0); RED CELL DISTRIBUTION WIDTH 13.8 % (11.6-16.5)
[2024-04-18 11:15] LABS: BAND NEUTROPHILS % 9 % (0-10); WHITE BLOOD COUNT 38.7 X10^3/uL (3.6-10.0)
[2024-04-18 11:16] LABS: PLATELET MORPHOLOGY COMMENT NORMAL (NORMAL)
--- NOTE | 2024-04-18 12:48 | RAD ---
EXAM:CHEST, 1 VIEWHISTORY:PNUMONIA, HYPOXEMIA; ELEVATED WBC, COUGH, SOBCOMPARISON:Prior study or studies were utilized for comparison during interpretation with the most relevant dated 04/17/2024TECHNIQUE:CHEST, 1 VIEWFINDINGS:Chest:Lines and tubes: Cardiac leads overlie the chest.Mediastinum: Median sternotomy wires are present. Cardiac shadow is normal in size.Pulmonary vessels: No pulmonary vascular congestion.Lung llamas: Worsening airspace opacities compared to yesterdayPleura: No effusion. No pneumothorax.Bones and soft tissues: No acute osseous or soft tissue abnormality.IMPRESSION:1. Worsening bilateral airspace opacities suggest pneumoniaTHIS IS AN ELECTRONICALLY VERIFIED FINAL REPORT04/18/2024 12:45 PM - Electronically signed by Rupert Mccoy MD
[2024-04-18] MEDS: LASIX IVP ONE (17:21)
[2024-04-18 17:24] LABS: BILIRUBIN,URINE NEGATIVE (NEGATIVE); BLOOD/HEMOGLOBIN,URINE NEGATIVE (NEGATIVE); GLUCOSE, URINE NEGATIVE (NEGATIVE); KETONES,URINE NEGATIVE (NEGATIVE); LEUKOCYTE ESTERASE ,URINE NEGATIVE (NEGATIVE); NITRITES,URINE NEGATIVE (NEGATIVE); PROTEIN,URINE 2+ (NEGATIVE); UROBILINOGEN,URINE NORMAL (NORMAL)
[2024-04-18 17:25] LABS: APPEARANCE,URINE CLEAR (CLEAR); COLOR,URINE YELLOW (YELLOW)
[2024-04-18 17:28] LABS: BACTERIA,URINE TRACE /HPF (NEGATIVE); RBC,URINE NONE SEEN /HPF (0-3); SQUAMOUS EPITHELIAL CELL,UR RARE /HPF (NEGATIVE)
[2024-04-18] MEDS: PHARMACY CONSULT - VANCOMYCIN XX SCH (18:49)
[2024-04-18] MEDS: COLACE CAP 100 MG PO PRN (20:20)
[2024-04-18] MEDS: CARDURA PO SCH (20:21)
[2024-04-18] MEDS: FERROUS GLUCONATE PO SCH (20:22)
[2024-04-18] MEDS: NORVASC TAB 5 MG PO SCH (20:22)
[2024-04-18] MEDS: PROSCAR PO SCH (20:23)
[2024-04-18] MEDS: CRESTOR TAB 10 MG PO SCH (20:24)
[2024-04-19 05:21] LABS: BASOPHILS # (AUTO) 0.2 X10^3/uL (0.0-0.1); BASOPHILS % (AUTO) 0.7 % (0.2-1.0); EOSINOPHILS # (AUTO) 0.1 x10^3/uL (0.0-0.2); EOSINOPHILS % (AUTO) 0.6 % (0.9-2.9); HEMATOCRIT 32.7 % (42.0-54.0); HEMOGLOBIN 10.5 g/dL (13.5-18.0); LYMPHOCYTES # (AUTO) 0.7 X10^3/uL (1.3-2.9); MEAN CORPUSCULAR HEMOGLOBIN 27.4 pg (27.0-34.0); MEAN CORPUSCULAR HGB CONC 32.3 g/dL (33.0-35.0); MEAN CORPUSCULAR VOLUME 85.1 fL (80.0-100.0); MEAN PLATELET VOLUME 10.5 fL (7.4-11.0); MONOCYTES # (AUTO) 0.5 x10^3/uL (0.3-0.8); MONOCYTES % (AUTO) 2.1 % (0.0-13.0); NEUTROPHILS # (AUTO) 20.7 x10^3/uL (2.2-4.8); NEUTROPHILS % (AUTO) 93.6 % (42.0-75.0); PLATELET COUNT 144 X10^3/uL (150.0-450.0); RED BLOOD COUNT 3.84 X10^6/uL (4.7-6.0); RED CELL DISTRIBUTION WIDTH 14.6 % (11.6-16.5); WHITE BLOOD COUNT 22.1 X10^3/uL (3.6-10.0)
[2024-04-19 05:26] LABS: ALBUMIN 2.2 g/dL (3.4-5.0); CALCIUM 7.8 mg/dL (8.5-10.1); CARBON DIOXIDE 27.7 mmol/L (21-32); COR CA(FOR HYPOALB) 9.2 mg/dL (8.5-10.1); CREATININE 3.36 mg/dL (0.70-1.30); MAGNESIUM 1.8 mg/dL (2.0-2.9); POTASSIUM 4.6 mmol/L (3.5-5.1); TOTAL PROTEIN 5.8 g/dL (6.4-8.2)
[2024-04-19 05:53] LABS: PLATELET MORPHOLOGY COMMENT NORMAL (NORMAL)
[2024-04-19] MEDS ORDERED: CONSULT PHARMACY - POTASSIUM & MAGNESIUM XX SCH (07:00)
[2024-04-19] MEDS: MAG-OX TAB PO SCH (08:21)
[2024-04-19] MEDS: TOPROL XL PO ONE (08:48)
[2024-04-19] MEDS ORDERED: TESSALON PERLES PO PRN (10:08)
--- NOTE | 2024-04-19 10:11 | PCM.PROG ---
Progress Note Progress Note for Day of Date of Exam: 04/19/24 Subjective Subjective: Patient seen at bedside, no acute events overnight. He states he feels slightly better. He is on 4L NC. He was not having much UOP yesterday so butt was placed and patient was given IV lasix. He has had good UOP since then. CXR did show worsening pneumonia. AIT did show COVID +. He is currently on cardizem 2.5mg/hr and IV antibiotics. Labs/imaging reviewed: -WBC 22.1 Hgb 10.5 Plt 144 BUN/Cr: 45/3.36 -CXR: worsening pneumonia -Sputum Cx: negative -ECHO: EF 60%, IVC dilated, pulmonary HTN Plan: repeat CXR. COVID precautions. Wean O2 as tolerated. Will give lasix 20 mg IV daily, monitor UOP. Wean Cardizem drip, increase metoprolol succinate to 75 mg daily. Continue IV antibiotics, bronchodilators and cough medicine. PT/OT as tolerated. Monitor AM labs/imaging. Time spend for clinical assessment, reviewing labs/imaging, physical exam, decision making and documentation greater than 45 mins. Past Medical Family Social History Allergies: Allergies No Known Drug Allergies Allergy (Verified 04/17/24 16:57) Vital Signs and I&O's Vital Signs: Vital Signs Temperature 99.0 F Temperature 98.8 F Pulse Rate 93 Pulse Rate 84 Pulse Rate 91 Pulse Rate 94 Pulse Rate 86 Pulse Rate 87 Pulse Rate 99 Pulse Rate 91 Pulse Rate 82 Pulse Rate 83 Pulse Rate 87 Pulse Rate 85 Pulse Rate 82 Pulse Rate 82 Respiratory Rate 24 Respiratory Rate 26 Respiratory Rate 29 Respiratory Rate 24 Respiratory Rate 24 Respiratory Rate 28 Respiratory Rate 27 Respiratory Rate 24 Respiratory Rate 24 Respiratory Rate 24 Respiratory Rate 25 Respiratory Rate 25 Respiratory Rate 22 Blood Pressure 100/54 Blood Pressure 119/59 Blood Pressure 107/54 Blood Pressure 104/55 Blood Pressure 108/55 Blood Pressure 106/55 Blood Pressure 107/55 O2 Sat by Pulse Oximetry 97 O2 Sat by Pulse Oximetry 97 O2 Sat by Pulse Oximetry 97 O2 Sat by Pulse Oximetry 97 O2 Sat by Pulse Oximetry 97 O2 Sat by Pulse Oximetry 96 O2 Sat by Pulse Oximetry 97 O2 Sat by Pulse Oximetry 96 O2 Sat by Pulse Oximetry 96 O2 Sat by Pulse Oximetry 95 O2 Sat by Pulse Oximetry 95 O2 Sat by Pulse Oximetry 95 O2 Sat by Pulse Oximetry 97 O2 Sat by Pulse Oximetry 95 Intake and Output: Intake & Output 04/16/24 04/17/24 04/18/24 04/19/24 23:59 23:59 23:59 23:59 Intake Total 2954 / 2954 225 / 225 Output Total 950 / 950 300 / 300 Balance 2003 -75 / -75 Physical Exam Oriented: Normal Eyes: Normal Nose: Normal Throat: Normal Respiratory: Generalized, Rales and Rhonchi Cardiovascular: Normal and Irregular Auscultation: Bowel Sounds: Normal Palpation: Normal Tenderness: Normal Skin: Normal Musculoskeletal: Normal Psychiatric: Normal Mood Description: Calm Affect: Normal Speech Pattern: Clear Laboratory and Diagnostics 04/19/24 04:15 04/19/24 04:15 Labs: 04/18/24 01:50 Sputum - Expectorated Sputum Sputum Culture - Final 04/18/24 01:50 Sputum - Expectorated Sputum - Final Laboratory WBC 22.1 X10^3/uL (3.6-10.0) H D 04/19/24 04:15 RBC 3.84 X10^6/uL (4.7-6.0) L 04/19/24 04:15 Hgb 10.5 g/dL (13.5-18.0) L 04/19/24 04:15 Hct 32.7 % (42.0-54.0) L 04/19/24 04:15 MCV 85.1 fL (80.0-100.0) 04/19/24 04:15 MCH 27.4 pg (27.0-34.0) 04/19/24 04:15 MCHC 32.3 g/dL (33.0-35.0) L 04/19/24 04:15 RDW 14.6 % (11.6-16.5) 04/19/24 04:15 Plt Count 144 X10^3/uL (150.0-450.0) L 04/19/24 04:15 Plt Count Comment Decreased (ADEQUATE) 04/19/24 04:15 MPV 10.5 fL (7.4-11.0) 04/19/24 04:15 Neut % (Auto) 93.6 % (42.0-75.0) H 04/19/24 04:15 Lymph % (Auto) 3.0 % (21.0-51.0) L 04/19/24 04:15 [place] % (Auto) 2.1 % (0.0-13.0) 04/19/24 04:15 Eos % (Auto) 0.6 % (0.9-2.9) L 04/19/24 04:15 Baso % (Auto) 0.7 % (0.2-1.0) 04/19/24 04:15 Neut # (Auto) 20.7 x10^3/uL (2.2-4.8) H 04/19/24 04:15 Lymph # (Auto) 0.7 X10^3/uL (1.3-2.9) L 04/19/24 04:15 [place] # (Auto) 0.5 x10^3/uL (0.3-0.8) 04/19/24 04:15 Eos # (Auto) 0.1 x10^3/uL (0.0-0.2) 04/19/24 04:15 Baso # (Auto) 0.2 X10^3/uL (0.0-0.1) H 04/19/24 04:15 Absolute Nucleated RBC 0.0 /100WBC 04/19/24 04:15 Total Counted 100 04/19/24 04:15 Neutrophils % (Manual) 96 % (39-76) H 04/19/24 04:15 Band Neutrophils % 9 % (0-10) 04/18/24 10:30 Lymphocytes % (Manual) 3 % (13-43) L 04/19/24 04:15 Monocytes % (Manual) 1 % (4-9) L 04/19/24 04:15 Eosinophils % (Manual) 0 % (0-6) 04/17/24 16:45 Basophils % (Manual) 0 % (0-1) 04/17/24 16:45 Giant Platelets Rare 04/17/24 16:45 Plt Morphology Comment Normal (NORMAL) 04/19/24 04:15 RBC Morphology Normal (NORMAL) 04/19/24 04:15 Stomatocytes Slight A 04/17/24 16:45 PT 15.1 SECONDS (11.8-14.3) 04/17/24 16:45 INR Target Range - 04/17/24 16:45 INR 1.22 (0.8-1.3) 04/17/24 16:45 APTT 31.6 SECONDS (22.9-36.5) 04/17/24 16:45 PTT Comment - 04/17/24 16:45 D-Dimer 0.47 ug/ml (0.0-0.57) 04/17/24 16:45 Sample Site Rrad 04/17/24 16:39 ABG pH 7.450 (7.35-7.45) 04/17/24 16:39 ABG pCO2 37.0 mmHg (35.0-45.0) 04/17/24 16:39 ABG pO2 47.0 mmHg (80.0-100.0) L* 04/17/24 16:39 ABG HCO3 25.7 mmol/L (22-26) 04/17/24 16:39 ABG O2 Saturation 85.0 % (90-100) L 04/17/24 16:39 ABG Base Excess 1.8 mmol/L (-2.0-2.0) 04/17/24 16:39 Jonh Test Pos 04/17/24 16:39 A-a Gradient 56.0 mmHg 04/17/24 16:39 FiO2 21.0 04/17/24 16:39 Blood Gas Comments Pt ezequiel well elj cdn 04/17/24 16:39 Sodium 138 mmol/L (136-145) 04/19/24 04:15 Corrected Sodium 138 mmol/L (136-145) 04/19/24 04:15 Potassium 4.6 mmol/L (3.5-5.1) 04/19/24 04:15 Chloride 102 mmol/L (98-107) 04/19/24 04:15 Carbon Dioxide 27.7 mmol/L (21-32) 04/19/24 04:15 BUN 45 mg/dL (7-18) H 04/19/24 04:15 Creatinine 3.36 mg/dL (0.70-1.30) H 04/19/24 04:15 Est GFR (MDRD) Af Amer 23 (>60) L 04/19/24 04:15 Est GFR (MDRD) Non-Af 19 (>60) L 04/19/24 04:15 Glucose 120 mg/dL (65-99) H 04/19/24 04:15 Lactic Acid 1.2 mmol/L (0.4-2.0) 04/18/24 07:20 Calcium 7.8 mg/dL (8.5-10.1) L 04/19/24 04:15 Corrected Calcium 9.2 mg/dL (8.5-10.1) 04/19/24 04:15 Magnesium 1.8 mg/dL (2.0-2.9) L 04/19/24 04:15 Total Bilirubin 0.90 mg/dL (0.2-1.0) 04/19/24 04:15 AST 18 Units/L (15-37) 04/19/24 04:15 ALT 15 Units/L (12-78) 04/19/24 04:15 Alkaline Phosphatase 35 Units/L (46-116) L 04/19/24 04:15 Creatine Kinase 53 Units/L (39-308) 04/17/24 16:45 Troponin I High Sens 10.8 ng/L (4.0-60.0) 04/17/24 18:48 B-Natriuretic Peptide 322 pg/mL (0-79) H 04/18/24 04:15 Total Protein 5.8 g/dL (6.4-8.2) L 04/19/24 04:15 Albumin 2.2 g/dL (3.4-5.0) L 04/19/24 04:15 Globulin 3.6 g/dL (2.5-4.5) 04/19/24 04:15 Albumin/Globulin Ratio 0.6 Ratio (1.1-2.1) L 04/19/24 04:15 Specimen Type Catherized urine 04/18/24 17:10 Urine Color Yellow (YELLOW) 04/18/24 17:10 Urine Appearance Clear (CLEAR) 04/18/24 17:10 Urine pH 5.0 (5.0 - 8.0) 04/18/24 17:10 Ur Specific [place] 1.020 (1.000-1.030) 04/18/24 17:10 Urine Protein 2+ (NEGATIVE) 04/18/24 17:10 Urine Glucose (UA) Negative (NEGATIVE) 04/18/24 17:10 Urine Ketones Negative (NEGATIVE) 04/18/24 17:10 Urine Blood Negative (NEGATIVE) 04/18/24 17:10 Urine Nitrite Negative (NEGATIVE) 04/18/24 17:10 Urine Bilirubin Negative (NEGATIVE) 04/18/24 17:10 Urine Urobilinogen Normal (NORMAL) 04/18/24 17:10 Ur Leukocyte Esterase Negative (NEGATIVE) 04/18/24 17:10 Urine RBC None seen /HPF (0-3) 04/18/24 17:10 Urine WBC None seen /HPF (0-5) 04/18/24 17:10 Ur Squamous Epith Cells Rare /HPF (NEGATIVE) 04/18/24 17:10 Urine Bacteria Trace /HPF (NEGATIVE) 04/18/24 17:10 Hyaline Casts Few /LPF (NEGATIVE) 04/17/24 18:02 Urine Mucus Few /HPF (NEGATIVE) 04/17/24 18:02 Ur Culture Indicated? No/not indicated 04/18/24 17:10 Plan (1) COVID: Status: Acute (2) Atrial fibrillation with rapid ventricular response: Status: Acute (3) Acute and chronic respiratory failure: Status: Acute Qualifiers: Respiratory failure complication: hypoxia Qualified Code(s): J96.21 - Acute and chronic respiratory failure with hypoxia (4) Pneumonia: Status: Acute Qualifiers: Laterality: unspecified laterality Lung location: unspecified part of lung Pneumonia type: due to unspecified organism Qualified Code(s): J18.9 - Pneumonia, unspecified organism (5) Hypomagnesemia: Status: Acute (6) CAD (coronary artery disease): Status: Acute Qualifiers: Associated angina: unspecified whether angina present Coronary Disease- Associated Artery/Lesion type: bypass graft [place] vs. transplanted heart: [place] heart Qualified Code(s): I25.810 - Atherosclerosis of coronary artery bypass graft(s) without angina pectoris (7) Essential hypertension: Status: Acute (8) Anemia: Status: Acute Qualifiers: Anemia type: unspecified type Qualified Code(s): D64.9 - Anemia, unspecified (9) Acute kidney injury superimposed on CKD: Status: Acute (10) CHF (congestive heart failure): Status: Acute Qualifiers: Heart failure type: diastolic Heart failure chronicity: acute on chronic Qualified Code(s): I50.33 - Acute on chronic diastolic (congestive) heart failure
[2024-04-19] MEDS: LASIX IVP SCH (10:22)
[2024-04-20 05:02] LABS: BASOPHILS % (AUTO) 0.2 % (0.2-1.0); EOSINOPHILS % (AUTO) 0.2 % (0.9-2.9); HEMATOCRIT 33.9 % (42.0-54.0); LYMPHOCYTES # (AUTO) 1.2 X10^3/uL (1.3-2.9); MEAN CORPUSCULAR HEMOGLOBIN 27.6 pg (27.0-34.0); MEAN CORPUSCULAR HGB CONC 32.5 g/dL (33.0-35.0); MEAN CORPUSCULAR VOLUME 84.9 fL (80.0-100.0); MEAN PLATELET VOLUME 10.4 fL (7.4-11.0); MONOCYTES # (AUTO) 0.4 x10^3/uL (0.3-0.8); MONOCYTES % (AUTO) 3.2 % (0.0-13.0); NEUTROPHILS # (AUTO) 11.4 x10^3/uL (2.2-4.8); NEUTROPHILS % (AUTO) 87.4 % (42.0-75.0); PLATELET COUNT 121 X10^3/uL (150.0-450.0); RED BLOOD COUNT 3.99 X10^6/uL (4.7-6.0); RED CELL DISTRIBUTION WIDTH 14.3 % (11.6-16.5)
[2024-04-20 05:12] LABS: ALBUMIN 2.1 g/dL (3.4-5.0); CALCIUM 8.2 mg/dL (8.5-10.1); CARBON DIOXIDE 27.7 mmol/L (21-32); COR CA(FOR HYPOALB) 9.7 mg/dL (8.5-10.1); CREATININE 2.98 mg/dL (0.70-1.30); POTASSIUM 3.7 mmol/L (3.5-5.1); TOTAL PROTEIN 6.1 g/dL (6.4-8.2)
--- NOTE | 2024-04-20 07:21 | RAD ---
EXAM: CHEST, 1 VIEW HISTORY: Pneumonia, COVID positive COMPARISON: 04/18/2024 FINDINGS: The trachea is midline. The cardiac silhouette is unremarkable . Prior changes of median sternotomy are observed. Improved aeration of the left hemithorax and lower lobe is observed with persistent airspace opacity in the right lower lobe consistent with underlying airspace disease and pneumonia. The bony thorax is unremarkable. IMPRESSION: Persistent right lower lobe infiltrate with improved aeration of the left lower lobe. THIS IS AN ELECTRONICALLY VERIFIED FINAL REPORT 04/20/2024 7:17 AM - Electronically signed by Jose Marvin MD
[2024-04-20] MEDS: TOPROL XL PO SCH (08:45)
[2024-04-20] MEDS ORDERED: TOPROL XL PO SCH (09:00)
[2024-04-20] MEDS ORDERED: TUSSIONEX PENNKINETIC SUSP PO PRN (10:09)
--- NOTE | 2024-04-20 10:11 | PCM.PROG ---
Progress Note Progress Note for Day of Date of Exam: 04/20/24 Subjective Subjective: Patient seen at bedside, no acute events overnight. He is feeling better. He reports coughing up more mucus. He has been off the cardizem drip. His HR has been in the 90-low 100s. His BP has been stable. He has had good UOP. His CXR showed improved in the b/l pna. His renal function is improving slowly. He is currently on 3L NC. Labs/imaging reviewed: -WBC 13.0 Hgb 11.0 Plt 121 BUN/Cr: 47/2.98 -CXR: improved LLL -Sputum Cx: negative -ECHO: EF 60%, IVC dilated, pulmonary HTN Plan: COVID precautions. Wean O2 as tolerated. Continue lasix 20 mg IV daily, monitor UOP. Increase metoprolol succinate to 100 mg daily. Continue IV antibiotics, bronchodilators and cough medicine. Will DC Vancomycin. RT to do home O2 eval, add smart vest, IS. PT/OT as tolerated. Bladder training to remove butt. Monitor AM labs/imaging. Time spend for clinical assessment, reviewing labs/imaging, physical exam, decision making and documentation greater than 45 mins. Past Medical Family Social History Allergies: Allergies No Known Drug Allergies Allergy (Verified 04/17/24 16:57) Vital Signs and I&O's Vital Signs: Vital Signs Temperature 98.3 F Temperature 98.5 F Pulse Rate 103 Pulse Rate 105 Pulse Rate 107 Pulse Rate 103 Pulse Rate 109 Pulse Rate 99 Pulse Rate 106 Pulse Rate 100 Pulse Rate 101 Pulse Rate 102 Pulse Rate 99 Pulse Rate 108 Pulse Rate 104 Pulse Rate 103 Pulse Rate 101 Pulse Rate 106 Pulse Rate 88 Pulse Rate 96 Pulse Rate 98 Pulse Rate 94 Pulse Rate 97 Pulse Rate 95 Pulse Rate 97 Pulse Rate 97 Pulse Rate 98 Pulse Rate 100 Pulse Rate 100 Pulse Rate 103 Pulse Rate 111 Pulse Rate 103 Pulse Rate 99 Pulse Rate 95 Pulse Rate 93 Pulse Rate 97 Pulse Rate 97 Pulse Rate 98 Pulse Rate 97 Pulse Rate 96 Respiratory Rate 9 Respiratory Rate 27 Respiratory Rate 23 Respiratory Rate 22 Respiratory Rate 26 Respiratory Rate 27 Respiratory Rate 21 Respiratory Rate 23 Respiratory Rate 24 Respiratory Rate 22 Respiratory Rate 25 Respiratory Rate 23 Respiratory Rate 23 Respiratory Rate 25 Respiratory Rate 23 Respiratory Rate 25 Respiratory Rate 26 Respiratory Rate 23 Respiratory Rate 23 Respiratory Rate 24 Respiratory Rate 24 Respiratory Rate 24 Respiratory Rate 23 Respiratory Rate 24 Respiratory Rate 24 Respiratory Rate 29 Respiratory Rate 43 Respiratory Rate 29 Respiratory Rate 28 Respiratory Rate 21 Respiratory Rate 22 Respiratory Rate 24 Respiratory Rate 24 Respiratory Rate 22 Respiratory Rate 25 Respiratory Rate 23 Blood Pressure 127/57 Blood Pressure 113/55 Blood Pressure 118/57 Blood Pressure 143/62 Blood Pressure 143/62 Blood Pressure 117/58 Blood Pressure 117/58 Blood Pressure 114/58 Blood Pressure 114/58 Blood Pressure 119/58 Blood Pressure 119/58 O2 Sat by Pulse Oximetry 99 O2 Sat by Pulse Oximetry 97 O2 Sat by Pulse Oximetry 97 O2 Sat by Pulse Oximetry 98 O2 Sat by Pulse Oximetry 97 O2 Sat by Pulse Oximetry 97 O2 Sat by Pulse Oximetry 98 O2 Sat by Pulse Oximetry 95 O2 Sat by Pulse Oximetry 99 O2 Sat by Pulse Oximetry 99 O2 Sat by Pulse Oximetry 99 O2 Sat by Pulse Oximetry 99 O2 Sat by Pulse Oximetry 93 O2 Sat by Pulse Oximetry 98 O2 Sat by Pulse Oximetry 99 O2 Sat by Pulse Oximetry 100 O2 Sat by Pulse Oximetry 98 O2 Sat by Pulse Oximetry 97 O2 Sat by Pulse Oximetry 97 O2 Sat by Pulse Oximetry 99 O2 Sat by Pulse Oximetry 98 O2 Sat by Pulse Oximetry 97 O2 Sat by Pulse Oximetry 96 O2 Sat by Pulse Oximetry 96 O2 Sat by Pulse Oximetry 98 O2 Sat by Pulse Oximetry 98 O2 Sat by Pulse Oximetry 97 O2 Sat by Pulse Oximetry 93 O2 Sat by Pulse Oximetry 95 O2 Sat by Pulse Oximetry 93 O2 Sat by Pulse Oximetry 99 O2 Sat by Pulse Oximetry 99 O2 Sat by Pulse Oximetry 99 O2 Sat by Pulse Oximetry 94 O2 Sat by Pulse Oximetry 94 O2 Sat by Pulse Oximetry 99 O2 Sat by Pulse Oximetry 100 O2 Sat by Pulse Oximetry 99 Intake and Output: Intake & Output 04/17/24 04/18/24 04/19/24 04/20/24 23:59 23:59 23:59 23:59 Intake Total 2954 / 2954 1953 / 1953 220 / 220 Output Total 950 / 950 1850 / 1850 600 / 600 Balance 2003 104 / 104 -380 / -380 Physical Exam Oriented: Normal Eyes: Normal Nose: Normal Throat: Normal Respiratory: Generalized, Rales and Rhonchi Cardiovascular: Normal and Irregular Auscultation: Bowel Sounds: Normal Palpation: Normal Tenderness: Normal Skin: Normal Musculoskeletal: Normal Psychiatric: Normal Mood Description: Calm Affect: Normal Speech Pattern: Clear Laboratory and Diagnostics 04/20/24 04:09 04/20/24 04:09 Labs: 04/17/24 16:50 Blood Blood Culture - Preliminary 04/17/24 16:45 Blood Blood Culture - Preliminary 04/18/24 01:50 Sputum - Expectorated Sputum Sputum Culture - Final 04/18/24 01:50 Sputum - Expectorated Sputum - Final Laboratory WBC 13.0 X10^3/uL (3.6-10.0) H D 04/20/24 04:09 RBC 3.99 X10^6/uL (4.7-6.0) L 04/20/24 04:09 Hgb 11.0 g/dL (13.5-18.0) L 04/20/24 04:09 Hct 33.9 % (42.0-54.0) L 04/20/24 04:09 MCV 84.9 fL (80.0-100.0) 04/20/24 04:09 MCH 27.6 pg (27.0-34.0) 04/20/24 04:09 MCHC 32.5 g/dL (33.0-35.0) L 04/20/24 04:09 RDW 14.3 % (11.6-16.5) 04/20/24 04:09 Plt Count 121 X10^3/uL (150.0-450.0) L 04/20/24 04:09 Plt Count Comment Decreased (ADEQUATE) 04/19/24 04:15 MPV 10.4 fL (7.4-11.0) 04/20/24 04:09 Neut % (Auto) 87.4 % (42.0-75.0) H 04/20/24 04:09 Lymph % (Auto) 9.0 % (21.0-51.0) L 04/20/24 04:09 [place] % (Auto) 3.2 % (0.0-13.0) 04/20/24 04:09 Eos % (Auto) 0.2 % (0.9-2.9) L 04/20/24 04:09 Baso % (Auto) 0.2 % (0.2-1.0) 04/20/24 04:09 Neut # (Auto) 11.4 x10^3/uL (2.2-4.8) H 04/20/24 04:09 Lymph # (Auto) 1.2 X10^3/uL (1.3-2.9) L 04/20/24 04:09 [place] # (Auto) 0.4 x10^3/uL (0.3-0.8) 04/20/24 04:09 Eos # (Auto) 0.0 x10^3/uL (0.0-0.2) 04/20/24 04:09 Baso # (Auto) 0.0 X10^3/uL (0.0-0.1) 04/20/24 04:09 Absolute Nucleated RBC 0.0 /100WBC 04/20/24 04:09 Total Counted 100 04/19/24 04:15 Neutrophils % (Manual) 96 % (39-76) H 04/19/24 04:15 Band Neutrophils % 9 % (0-10) 04/18/24 10:30 Lymphocytes % (Manual) 3 % (13-43) L 04/19/24 04:15 Monocytes % (Manual) 1 % (4-9) L 04/19/24 04:15 Eosinophils % (Manual) 0 % (0-6) 04/17/24 16:45 Basophils % (Manual) 0 % (0-1) 04/17/24 16:45 Giant Platelets Rare 04/17/24 16:45 Plt Morphology Comment Normal (NORMAL) 04/19/24 04:15 RBC Morphology Normal (NORMAL) 04/19/24 04:15 Stomatocytes Slight A 04/17/24 16:45 PT 15.1 SECONDS (11.8-14.3) 04/17/24 16:45 INR Target Range - 04/17/24 16:45 INR 1.22 (0.8-1.3) 04/17/24 16:45 APTT 31.6 SECONDS (22.9-36.5) 04/17/24 16:45 PTT Comment - 04/17/24 16:45 D-Dimer 0.47 ug/ml (0.0-0.57) 04/17/24 16:45 Sample Site Rrad 04/17/24 16:39 ABG pH 7.450 (7.35-7.45) 04/17/24 16:39 ABG pCO2 37.0 mmHg (35.0-45.0) 04/17/24 16:39 ABG pO2 47.0 mmHg (80.0-100.0) L* 04/17/24 16:39 ABG HCO3 25.7 mmol/L (22-26) 04/17/24 16:39 ABG O2 Saturation 85.0 % (90-100) L 04/17/24 16:39 ABG Base Excess 1.8 mmol/L (-2.0-2.0) 04/17/24 16:39 Jonh Test Pos 04/17/24 16:39 A-a Gradient 56.0 mmHg 04/17/24 16:39 FiO2 21.0 04/17/24 16:39 Blood Gas Comments Pt ezequiel well elj cdn 04/17/24 16:39 Sodium 138 mmol/L (136-145) 04/20/24 04:09 Corrected Sodium 139 mmol/L (136-145) 04/20/24 04:09 Potassium 3.7 mmol/L (3.5-5.1) 04/20/24 04:09 Chloride 101 mmol/L (98-107) 04/20/24 04:09 Carbon Dioxide 27.7 mmol/L (21-32) 04/20/24 04:09 BUN 47 mg/dL (7-18) H 04/20/24 04:09 Creatinine 2.98 mg/dL (0.70-1.30) H 04/20/24 04:09 Est GFR (MDRD) Af Amer 26 (>60) L 04/20/24 04:09 Est GFR (MDRD) Non-Af 22 (>60) L 04/20/24 04:09 Glucose 129 mg/dL (65-99) H 04/20/24 04:09 Lactic Acid 1.2 mmol/L (0.4-2.0) 04/18/24 07:20 Calcium 8.2 mg/dL (8.5-10.1) L 04/20/24 04:09 Corrected Calcium 9.7 mg/dL (8.5-10.1) 04/20/24 04:09 Magnesium 1.8 mg/dL (2.0-2.9) L 04/19/24 04:15 Total Bilirubin 0.60 mg/dL (0.2-1.0) 04/20/24 04:09 AST 24 Units/L (15-37) 04/20/24 04:09 ALT 19 Units/L (12-78) 04/20/24 04:09 Alkaline Phosphatase 41 Units/L (46-116) L 04/20/24 04:09 Creatine Kinase 53 Units/L (39-308) 04/17/24 16:45 Troponin I High Sens 10.8 ng/L (4.0-60.0) 04/17/24 18:48 B-Natriuretic Peptide 322 pg/mL (0-79) H 04/18/24 04:15 Total Protein 6.1 g/dL (6.4-8.2) L 04/20/24 04:09 Albumin 2.1 g/dL (3.4-5.0) L 04/20/24 04:09 Globulin 4.0 g/dL (2.5-4.5) 04/20/24 04:09 Albumin/Globulin Ratio 0.5 Ratio (1.1-2.1) L 04/20/24 04:09 Specimen Type Catherized urine 04/18/24 17:10 Urine Color Yellow (YELLOW) 04/18/24 17:10 Urine Appearance Clear (CLEAR) 04/18/24 17:10 Urine pH 5.0 (5.0 - 8.0) 04/18/24 17:10 Ur Specific [place] 1.020 (1.000-1.030) 04/18/24 17:10 Urine Protein 2+ (NEGATIVE) 04/18/24 17:10 Urine Glucose (UA) Negative (NEGATIVE) 04/18/24 17:10 Urine Ketones Negative (NEGATIVE) 04/18/24 17:10 Urine Blood Negative (NEGATIVE) 04/18/24 17:10 Urine Nitrite Negative (NEGATIVE) 04/18/24 17:10 Urine Bilirubin Negative (NEGATIVE) 04/18/24 17:10 Urine Urobilinogen Normal (NORMAL) 04/18/24 17:10 Ur Leukocyte Esterase Negative (NEGATIVE) 04/18/24 17:10 Urine RBC None seen /HPF (0-3) 04/18/24 17:10 Urine WBC None seen /HPF (0-5) 04/18/24 17:10 Ur Squamous Epith Cells Rare /HPF (NEGATIVE) 04/18/24 17:10 Urine Bacteria Trace /HPF (NEGATIVE) 04/18/24 17:10 Hyaline Casts Few /LPF (NEGATIVE) 04/17/24 18:02 Urine Mucus Few /HPF (NEGATIVE) 04/17/24 18:02 Ur Culture Indicated? No/not indicated 04/18/24 17:10 Resp Viral Panel (PCR) See scanned report 04/18/24 01:30 Plan (1) COVID: Status: Acute (2) Atrial fibrillation with rapid ventricular response: Status: Acute (3) CHF (congestive heart failure): Status: Acute Qualifiers: Heart failure chronicity: acute on chronic Heart failure type: diastolic Qualified Code(s): I50.33 - Acute on chronic diastolic (congestive) heart failure (4) Acute and chronic respiratory failure: Status: Acute Qualifiers: Respiratory failure complication: hypoxia Qualified Code(s): J96.21 - Acute and chronic respiratory failure with hypoxia (5) Pneumonia: Status: Acute Qualifiers: Laterality: unspecified laterality Lung location: unspecified part of lung Pneumonia type: due to unspecified organism Qualified Code(s): J18.9 - Pneumonia, unspecified organism (6) Hypomagnesemia: Status: Acute (7) CAD (coronary artery disease): Status: Acute Qualifiers: Associated angina: unspecified whether angina present Coronary Disease- Associated Artery/Lesion type: bypass graft [place] vs. transplanted heart: [place] heart Qualified Code(s): I25.810 - Atherosclerosis of coronary artery bypass graft(s) without angina pectoris (8) Essential hypertension: Status: Acute (9) Anemia: Status: Acute Qualifiers: Anemia type: unspecified type Qualified Code(s): D64.9 - Anemia, unspecified (10) Acute kidney injury superimposed on CKD: Status: Acute
[2024-04-20] MEDS: ROBITUSSIN (PLAIN) PO SCH (16:32)
[2024-04-21 05:36] LABS: ALBUMIN 1.9 g/dL (3.4-5.0); CALCIUM 8.5 mg/dL (8.5-10.1); COR CA(FOR HYPOALB) 10.2 mg/dL (8.5-10.1); CREATININE 2.26 mg/dL (0.70-1.30); MAGNESIUM 1.9 mg/dL (2.0-2.9); POTASSIUM 3.8 mmol/L (3.5-5.1); TOTAL PROTEIN 5.9 g/dL (6.4-8.2)
[2024-04-21 05:54] LABS: BASOPHILS % (AUTO) 0.4 % (0.2-1.0); EOSINOPHILS # (AUTO) 0.1 x10^3/uL (0.0-0.2); EOSINOPHILS % (AUTO) 1.3 % (0.9-2.9); HEMATOCRIT 31.3 % (42.0-54.0); HEMOGLOBIN 10.2 g/dL (13.5-18.0); LYMPHOCYTES # (AUTO) 1.2 X10^3/uL (1.3-2.9); LYMPHOCYTES % (AUTO) 13.1 % (21.0-51.0); MEAN CORPUSCULAR HEMOGLOBIN 27.6 pg (27.0-34.0); MEAN CORPUSCULAR HGB CONC 32.5 g/dL (33.0-35.0); MEAN CORPUSCULAR VOLUME 84.8 fL (80.0-100.0); MEAN PLATELET VOLUME 10.8 fL (7.4-11.0); MONOCYTES # (AUTO) 0.4 x10^3/uL (0.3-0.8); MONOCYTES % (AUTO) 4.3 % (0.0-13.0); NEUTROPHILS # (AUTO) 7.2 x10^3/uL (2.2-4.8); NEUTROPHILS % (AUTO) 80.9 % (42.0-75.0); PLATELET COUNT 114 X10^3/uL (150.0-450.0); RED BLOOD COUNT 3.69 X10^6/uL (4.7-6.0); WHITE BLOOD COUNT 8.9 X10^3/uL (3.6-10.0)
[2024-04-21 07:21] LABS: GIANT PLATELET RARE; PLATELET MORPHOLOGY COMMENT ABNORMAL (NORMAL)
[2024-04-21] MEDS ORDERED: PHARMACY COMMENT IV NR (08:00)
[2024-04-21] MEDS: NS 1,000 ML IV 1,000 ML IV ONE (12:57)
[2024-04-21] MEDS: NS 100 ML IV 100 ML ONE (14:14)
[2024-04-21] MEDS: NS 1,000 ML IV 1,000 ML ONE (23:00)
[2024-04-22 04:48] VITALS: TEMP 98
[2024-04-22 05:19] LABS: BASOPHILS # (AUTO) 0.1 X10^3/uL (0.0-0.1); EOSINOPHILS # (AUTO) 0.1 x10^3/uL (0.0-0.2); HEMOGLOBIN 10.7 g/dL (13.5-18.0); MEAN CORPUSCULAR VOLUME 84.6 fL (80.0-100.0); MONOCYTES # (AUTO) 0.4 x10^3/uL (0.3-0.8); PLATELET COUNT 171 X10^3/uL (150.0-450.0)
[2024-04-22 05:27] LABS: ALANINE AMINOTRANSFERASE 33 Units/L (12-78); ALBUMIN 2.1 g/dL (3.4-5.0); ALKALINE PHOSPHATASE 51 Units/L (46-116); ASPARTATE AMINO TRANSFERASE 31 Units/L (15-37); BLOOD UREA NITROGEN 27 mg/dL (7-18); CALCIUM 8.7 mg/dL (8.5-10.1); CARBON DIOXIDE 32.2 mmol/L (21-32); CHLORIDE 102 mmol/L (98-107); COR CA(FOR HYPOALB) 10.2 mg/dL (8.5-10.1); GLUCOSE 99 mg/dL (65-99); MAGNESIUM 1.6 mg/dL (2.0-2.9); POTASSIUM 3.5 mmol/L (3.5-5.1); SODIUM 139 mmol/L (136-145); TOTAL PROTEIN 6.3 g/dL (6.4-8.2); eGFR NON BLACK RACES 41 (>60)
[2024-04-22 05:41] LABS: BASOPHILS % (AUTO) 0.7 % (0.2-1.0); EOSINOPHILS % (AUTO) 1.2 % (0.9-2.9); HEMATOCRIT 32.8 % (42.0-54.0); LYMPHOCYTES # (AUTO) 1.1 X10^3/uL (1.3-2.9); LYMPHOCYTES % (AUTO) 13.9 % (21.0-51.0); MEAN CORPUSCULAR HEMOGLOBIN 27.5 pg (27.0-34.0); MEAN CORPUSCULAR HGB CONC 32.6 g/dL (33.0-35.0); MEAN PLATELET VOLUME 10.2 fL (7.4-11.0); MONOCYTES % (AUTO) 4.7 % (0.0-13.0); NEUTROPHILS # (AUTO) 6.2 x10^3/uL (2.2-4.8); NEUTROPHILS % (AUTO) 79.5 % (42.0-75.0); RED BLOOD COUNT 3.87 X10^6/uL (4.7-6.0); RED CELL DISTRIBUTION WIDTH 13.9 % (11.6-16.5); WHITE BLOOD COUNT 7.8 X10^3/uL (3.6-10.0)
[2024-04-22 05:52] LABS: GIANT PLATELET RARE; PLATELET MORPHOLOGY COMMENT ABNORMAL (NORMAL)
[2024-04-22] MEDS ORDERED: CONSULT PHARMACY - POTASSIUM & MAGNESIUM XX SCH (06:00)
[2024-04-22] MEDS: K-DUR TAB 20 MEQ PO SCH (07:21)
[2024-04-22] MEDS: MAG-OX TAB PO SCH (07:21)
[2024-04-22] MEDS: NS 1,000 ML IV 1,000 ML IV ONE (08:46)
[2024-04-22] MEDS: ZOSYN VIAL 3.375 GRAMS 3.375 G in NS 100 ML IV 100 ML IV SCH (09:35)
[2024-04-22 11:14] VITALS: O2SAT 100
[2024-04-22 12:31] VITALS: BP 135/64; PULSE 107; RESP 30
== END 2024-04-22 13:05 | disposition home or self-care (01) | DRG 177 ==
LOC: ER 16:30 → ICU 23:57
PROVIDERS: ADMIT Family Medicine; ATTEND Family Medicine
DX: R26.89 Other abnormalities of gait and mobility; J96.21 Acute and chronic respiratory failure with hypoxia; I25.810 Atherosclerosis of coronary artery bypass graft(s) without angina pectoris; N17.8 Other acute kidney failure; D64.89 Other specified anemias; I48.91 Unspecified atrial fibrillation; R94.31 Abnormal electrocardiogram [ECG] [EKG]; I50.33 Acute on chronic diastolic (congestive) heart failure; U07.1 COVID-19; J12.82 Pneumonia due to coronavirus disease 2019; N18.9 Chronic kidney disease, unspecified; I13.0 Hypertensive heart and chronic kidney disease with heart failure and stage 1 through stage 4 chronic kidney disease, or unspecified chronic kidney disease; E11.65 Type 2 diabetes mellitus with hyperglycemia; J44.9 Chronic obstructive pulmonary disease, unspecified; E83.42 Hypomagnesemia